=== PATIENT | female | born 1960 | race African-American/Black ===

== ENCOUNTER 2021-02-13 21:12 | Emergency (ER) | payer BC, OTHER ==
[~2021-02-13] VITALS: Ht 170.2 cm; Wt 74.8 kg
[2021-02-13 22:06] VITALS: BP 188/119
== END 2021-02-13 22:07 | disposition home or self-care (01) ==
LOC: ER 21:12
DX: S91.112A Laceration without foreign body of left great toe without damage to nail, initial encounter (principal); W25.XXXA Contact with sharp glass, initial encounter; Y93.89 Activity, other specified; Y92.89 Other specified places as the place of occurrence of the external cause; Y99.9 Unspecified external cause status